=== PATIENT | male | born 1945 | race Caucasian/White ===

== ENCOUNTER → 2017-09-10 | Outpatient (CLI) | payer MEDICARE ==
[2017-09-10 11:22] LABS: ALANINE AMINOTRANSFERASE 24 U/L (12-78); ALBUMIN 3.5 g/dL (3.4-5.0); ANION GAP 6 mmol/L (5-15); CHLORIDE 109 mmol/L (98-107); CREATININE 0.91 mg/dL (0.7-1.3)
[2017-09-10 11:24] LABS: ALKALINE PHOSPHATASE 73 U/L (45-117); BILIRUBIN,TOTAL 0.6 mg/dL (0.2-1.0)
== END | disposition home or self-care (01) ==
LOC: STAR 10:00
PROVIDERS: ATTEND Internal Medicine Gastroenterology
DX: Z01.818 Encounter for other preprocedural examination (principal); R93.8 Abnormal findings on diagnostic imaging of other specified body structures
CPT/HCPCS: 36415; 80053; 93005

== ENCOUNTER 2017-09-20 07:14 | Day surgery (SDC) | payer MEDICARE ==
[~2017-09-20] VITALS: Ht 185.4 cm; Wt 75.9 kg
[~2017-09-20 07:14] MED LIST: ASPI-496 PO; CARV3.122 PO; FOLI0.4T2 PO; LOSA25TA5 PO; ROSU40TA PO; TAMS0.4C2 PO
[2017-09-20 07:48] VITALS: BP 126/79
[2017-09-20] MEDS ORDERED: METF500T5 PO (07:52)
[2017-09-20] MEDS ORDERED: LACTATED RINGERS 1,000 ML IV SCH (07:54)
[2017-09-20] MEDS ORDERED: PROPOFOL 10 MG/ML, 20ML ONE ×3 (08:54→09:55)
== END 2017-09-20 12:05 | disposition home or self-care (01) ==
LOC: OUT 07:14
PROVIDERS: ATTEND Internal Medicine Gastroenterology
DX: K31.89 Other diseases of stomach and duodenum (principal); I10 Essential (primary) hypertension; E78.5 Hyperlipidemia, unspecified; I25.10 Atherosclerotic heart disease of native coronary artery without angina pectoris; E11.9 Type 2 diabetes mellitus without complications; Z79.82 Long term (current) use of aspirin
CPT/HCPCS: 43238; 82962; 88172; 88173; 88177; 88305; J2704; 88341; 88342; G0461